=== PATIENT | male | born 1995 ===

== ENCOUNTER 2017-01-07 18:12 | Emergency (ER) | payer OTHER ==
[2017-01-07 18:25] VITALS: O2SAT 97
[2017-01-07] MEDS ORDERED: Promethazine/Cod 6.25mg-10mg/5ml Syr UD PO STA (18:37)
[2017-01-07] MEDS ORDERED: Promethazine/Cod 6.25mg-10mg/5ml Syr UD ONE (19:14)
--- NOTE | 2017-01-07 20:16 | ED PDOC ---
HPI: Chest Pain Time Seen by Provider: 01/07/17 18:25 Chief Complaint (Nursing): Chest Pain Chief Complaint (Provider): Chest Pain History Per: Patient History/Exam Limitations: no limitations Onset/Duration Of Symptoms: Mins (20 minutes ago) Current Symptoms Are (Timing): Still Present Severity: Moderate Quality: Other (Ripping) Associated Symptoms: Nausea. denies: Dyspnea Exacerbating Factors: Other (Coughing) Additional Complaint(s): Star Marin is a 21 year old male, with no pertinent past medical history, who presents to the emergency department with complaints of chest pain that the patient has been experiencing for 20 minutes [employer]. Patient states the pain is described as a ripping pain that worsens with coughing. Associated phlegm (green ) with occasional blood, a sore throat, and rhinorrhea are also reported. Denies dyspnea, extremity pain, weightless and a shortness of breath. Of note, the patient reports having had "pink eye" 2 days ago which he has been treating with over the counter eye drops. He also reports vomiting daily in the morning and has been doing so for a very long time; he has had no prior medical evaluations for this issue. PMD: none specified Past Medical History Reviewed: Historical Data, Nursing Documentation, Vital Signs Vital Signs: Last Vital Signs Temp 97.9 F 01/07/17 20:00 Pulse 85 01/07/17 20:53 Resp 16 01/07/17 20:00 BP 135/80 01/07/17 20:00 Pulse Ox 97 01/07/17 20:53 - Medical History PMH: Hypercholesterolemia - Surgical History Surgical History: No Surg Hx - Family History Family History: States: Unknown Family Hx - Social History Current smoker - smoking cessation education provided: No Alcohol: Occasional (Once a year) Drugs: Denies - Home Medications Home Medications: Ambulatory Orders Medication Instructions Recorded Azithromycin [Zithromax] 250 mg PO DAILY #6 dose 01/07/17 Ibuprofen [Motrin Tab] 600 mg PO Q8 PRN #60 tab 01/07/17 Promethazine HCl/Codeine 10 ml PO Q6 PRN #120 ml 01/07/17 [Prometh-Codein 6.25-10 mg/5 ml] - Allergies Allergies/Adverse Reactions: Allergies Allergy/AdvReac Type Severity Reaction Status Date / Time No Known Allergies Allergy Verified 01/07/17 18:13 Review of Systems ROS Statement: Except As Marked, All Systems Reviewed And Found Negative Constitutional: Negative for: Fever, Weight loss Eyes: Positive for: Conjunctivae Inflammation ("Ely eye") ENT: Positive for: Nose Discharge, Throat Pain Respiratory: Positive for: Cough, Sputum (Green-tinted w/ occasional blood). Negative for: Shortness of Breath Gastrointestinal: Positive for: Vomiting Musculoskeletal: Negative for: Arm Pain, Leg Pain Physical Exam - Reviewed Nursing Documentation Reviewed: Yes Vital Signs Reviewed: Yes - Physical Exam Appears: Positive for: Well, No Acute Distress Head Exam: Positive for: ATRAUMATIC, NORMAL INSPECTION, NORMOCEPHALIC Skin: Positive for: Warm, Dry Eye Exam: Positive for: EOMI, PERRL ENT: Positive for: Normal ENT Inspection. Negative for: Pharyngeal Erythema, Tonsillar Exudate Neck: Positive for: Painless ROM, Supple Cardiovascular/Chest: Positive for: Regular Rate, Rhythm. Negative for: Chest Non Tender (Mild left anterior wall tenderness), Gallop, Murmur, Other (No Rub) Respiratory: Positive for: Normal Breath Sounds. Negative for: Rales, Rhonchi, Wheezing, Respiratory Distress Gastrointestinal/Abdominal: Positive for: Soft. Negative for: Tenderness Back: Positive for: Normal Inspection. Negative for: Decreased ROM Extremity: Positive for: Normal ROM. Negative for: Deformity Lymphatic: Negative for: Adenopathy Neurologic/Psych: Positive for: Alert. Negative for: Motor/Sensory Deficits - ECG ECG: Positive for: Interpreted By Me, Viewed By Me ECG Rhythm: Positive for: Normal ST Segment, Sinus Rhythm, Right Bundle Branch Block Rate: 85 O2 Sat by Pulse Oximetry: 97 Pulse Ox Interpretation: Normal Medical Decision Making Medical Decision Makin:25 Initial Impression: cough, left-sided chest pain Differential Diagnoses include, but are not limited to PNA, PTX, Influenza A/B, Chest Wall Stream. Initial Plan: * CXR * Influenza A/B * Phenergan/Codeine Oral Syrup 5ml PO * Toradol 15mg IM * Reevaluation EKG shows NSR at 85bpm with a RBBB and Normal ST segments. 20:22 - CXR shows no acute disease. Negative for Influenza. 20:22 Upon provider reevaluation patient is feeling better, is medically stable, and requires no further treatment in the ED at this time. Patient will be discharged home with Rx for Ibuprofen 600mg, Prometh-Codein 10ml, Zithromax 250mg. Counseling was provided and all questions were answered regarding diagnosis and need for follow up with the referred clinic. There is agreement to discharge plan. Return if symptoms persist or worsen. Clinical Impression: Chest pain Scribe Attestation: Documented by Keegan Frey, training under Kemi Carvalho, acting as a scribe for Ruth Shi MD. Provider Scribe Attestation: All medical record entries made by the Scribe were at my direction and personally dictated by me. I have reviewed the chart and agree that the record accurately reflects my personal performance of the history, physical exam, medical decision making, and the department course for this patient. I have also personally directed, reviewed, and agree with the discharge instructions and disposition. Disposition - Clinical Impression Clinical Impression: Chest pain - Patient ED Disposition Is Patient to be Admitted: No Counseled Patient/Family Regarding: Studies Performed, Diagnosis, Need For Followup, Rx Given - Disposition Referrals: [facility] [Outside] [facility] [Outside] - 01/09/17 Disposition: Routine/Home Disposition Time: 20:22 Condition: STABLE Prescriptions: Ibuprofen [Motrin Tab] 600 mg PO Q8 PRN #60 tab PRN Reason: Pain, Moderate (4-7) Promethazine HCl/Codeine [Prometh-Codein 6.25-10 mg/5 ml] 10 ml PO Q6 PRN #120 ml PRN Reason: SEVERE COUGH ONLY Azithromycin [Zithromax] 250 mg PO DAILY #6 dose Instructions: Acute Bronchitis (ED), Chest Wall Pain (ED) Forms: [facility] ED School/Work Excuse Print Language: HUNGARIAN
[2017-01-07 20:41] VITALS: BP 135/80; RESP 16; TEMP 97.9
[2017-01-07 20:46] VITALS: PULSE 85
--- NOTE | 2017-01-08 08:43 | RAD ---
HISTORY: severe LEFT sided chest pain r/o ptx COMPARISON: No prior. TECHNIQUE: Chest PA and lateral FINDINGS: LUNGS: No active pulmonary disease. PLEURA: No significant pleural effusion identified. No pneumothorax apparent. CARDIOVASCULAR: Normal. OSSEOUS STRUCTURES: No significant abnormalities. VISUALIZED UPPER ABDOMEN: Normal. OTHER FINDINGS: None. IMPRESSION: No active disease.
== END 2017-01-07 20:41 | disposition home or self-care (01) ==
LOC: H.ER 18:12
DX: R07.9 Chest pain, unspecified (principal); E78.00 Pure hypercholesterolemia, unspecified

== ENCOUNTER 2017-02-07 16:42 | Emergency (ER) | payer OTHER ==
[2017-02-07 16:49] VITALS: BP 133/74; PULSE 67; RESP 18; TEMP 98.4; O2SAT 97
[2017-02-07] MEDS ORDERED: Povidone Iodine Topical 10% Sol ONE (16:50)
[2017-02-07] MEDS ORDERED: Lidocaine 1% Inj (20ml) IJ STA (17:13)
--- NOTE | 2017-02-07 17:13 | ED PDOC ---
Upper Extremity Pain/Injury Chief Complaint (Nursing): Upper Extremity Problem/Injury Chief Complaint (Provider): Laceration History Per: Patient History/Exam Limitations: no limitations Onset/Duration Of Symptoms: Hrs (prior to arrival) Current Symptoms Are (Timing): Still Present Additional Complaint(s): 16:50 Star Marin, 21 year old male presents to the ED on 02/07/17 after experiencing a laceration to his first two digits on his right hand while using a bread knife at work prior to arrival. The patient denies numbness at site of injury and has no pertinent past medical history. Past Medical History Reviewed: Historical Data, Nursing Documentation, Vital Signs Vital Signs: Last Vital Signs Temp 98.4 F 02/07/17 16:47 Pulse 67 02/07/17 16:47 Resp 18 02/07/17 16:47 BP 133/74 02/07/17 16:47 Pulse Ox 97 02/07/17 16:47 - Medical History PMH: Hypercholesterolemia - Family History Family History: States: Unknown Family Hx - Home Medications Home Medications: Ambulatory Orders Medication Instructions Recorded Azithromycin [Zithromax] 250 mg PO DAILY #6 dose 01/07/17 Ibuprofen [Motrin Tab] 600 mg PO Q8 PRN #60 tab 01/07/17 Promethazine HCl/Codeine 10 ml PO Q6 PRN #120 ml 01/07/17 [Prometh-Codein 6.25-10 mg/5 ml] Cephalexin [cephalexin] 500 mg PO BID #20 cap 02/07/17 - Allergies Allergies/Adverse Reactions: Allergies Allergy/AdvReac Type Severity Reaction Status Date / Time No Known Allergies Allergy Verified 01/07/17 18:13 Review of Systems Neurological: Negative for: Numbness (No numbness in right hand) Physical Exam - Reviewed Nursing Documentation Reviewed: Yes Vital Signs Reviewed: Yes - Physical Exam Appears: Positive for: Non-toxic, No Acute Distress Head Exam: Positive for: ATRAUMATIC, NORMOCEPHALIC Extremity: Positive for: Normal ROM (Full ROM to 1st NTP and 2nd digit DIP), Capillary Refill (good cap refill to 1st NTP and 2nd digit DIP), Deformity ( Laceration noted to 1st NTP (2cm) and 2nd digit DIP on right hand; partial thickness; good pulses; active bleeding), Other (No nail bed in 2nd digit DIP) Neurologic/Psych: Positive for: Alert, Oriented (x3) - ECG O2 Sat by Pulse Oximetry: 97 (RA) Pulse Ox Interpretation: Normal Medical Decision Making Medical Decision Makin:50 Initial Impression: Laceration noted to 1st NTP and 2nd digit DIP Initial Plan: * Wash wound with Normal Saline and Betadine * Suture placement * Finger splint application * No indication of X-Ray * Lidocaine 1% (20ml) 10 ml IJ STAT Discussed with patient plan of treatment, finger splint application. Patient was told not to wet wound, the risk of infection, and to wait 7-8 days for suture removal. Patient agreed to plan of treatment. Scribe~Attestation: Documented by Yanet Romero, acting as a~scribe~for Irasema Oseguera PA-C. Provider~Scribe~Attestation: All medical record entries made by the~Scribe~were at my direction and personally dictated by me. I have reviewed the chart and agree that the record accurately reflects my personal performance of the history, physical exam, medical decision making, and the department course for this patient. I have also personally directed, reviewed, and agree with the discharge instructions and disposition. Procedures - Laceration/Wound Repair Suture Placement Wound Length (cm): 2 (1st digit NTP) Wound's Depth, Shape: superficial (partial thickness) Wound Explored: clean Irrigated w/ Saline (ccs): 250 Betadine Prep?: Yes Anesthesia: 1% Lidocaine Volume Anesthetic (ccs): 4 Wound Debrided: minimal Wound Repaired With: Sutures Suture Size/Type: 5:0, nylon Number of Sutures: 8 Wound Complexity: Intermediate (Interrupted) Sterile Dressing Applied?: Yes Splint Applied?: Yes Suture Wound Length (cm): 2 (2nd digit DIP) Wound's Depth, Shape: superficial (partial thickness) Wound Explored: clean Betadine Prep?: Yes Volume Anesthetic (ccs): 4 Wound Debrided: minimal Wound Repaired With: Sutures Suture Size/Type: 5:0, nylon Number of Sutures: 7 Wound Complexity: Intermediate (interrupted) Sterile Dressing Applied?: Yes Splint Applied?: Yes Disposition - Clinical Impression Clinical Impression: Laceration - Patient ED Disposition Is Patient to be Admitted: No - Disposition Referrals: Steven Medrano MD [Medical Doctor] - Disposition: Routine/Home Disposition Time: 20:38 Condition: STABLE Additional Instructions: keep wound clean do not wet wound keep splint on return in 8-9 days for wound check and removal. Prescriptions: Cephalexin [cephalexin] 500 mg PO BID #20 cap Instructions: Care For Your Stitches (ED), Laceration (ED) Forms: [employer] ED School/Work Excuse
== END 2017-02-07 19:09 | disposition home or self-care (01) ==
LOC: H.ER 16:42
DX: S61.218A Laceration without foreign body of other finger without damage to nail, initial encounter (principal); W26.0XXA Contact with knife, initial encounter; Y92.000 Kitchen of unspecified non-institutional (private) residence as the place of occurrence of the external cause; E78.00 Pure hypercholesterolemia, unspecified

== ENCOUNTER 2017-02-14 11:17 | Emergency (ER) | payer OTHER ==
[2017-02-14 11:31] VITALS: BP 122/67; PULSE 80; RESP 20; TEMP 97; O2SAT 100
--- NOTE | 2017-02-14 11:44 | ED PDOC ---
HPI: Wound Care - HPI Time Seen by Provider: 02/14/17 11:41 Chief Complaint (Nursing): Suture/Staple Removal Chief Complaint (Provider): suture removal History Per: Patient Additional Complaint(s): Patient presents to emergency department for removal of sutures from left hand. Patient sustained 2 lacerations to left hand last week that were repaired 7 days ago. He denies any acute pain to the affected area, denies active bleeding or drainage. Patient's tetanus is up-to-date. Past Medical History Reviewed: Historical Data, Nursing Documentation, Vital Signs Vital Signs: Last Vital Signs Temp 97 F L 02/14/17 11:29 Pulse 80 02/14/17 11:29 Resp 20 02/14/17 11:29 BP 122/67 02/14/17 11:29 Pulse Ox 100 02/14/17 11:29 - Medical History PMH: No Chronic Diseases - Surgical History Surgical History: No Surg Hx - Family History Family History: States: No Known Family Hx - Living Arrangements Living Arrangements: With Family - Social History Current smoker - smoking cessation education provided: No Alcohol: None Drugs: Denies - Immunization History Hx Tetanus Toxoid Vaccination: Yes - Home Medications Home Medications: Ambulatory Orders Medication Instructions Recorded Azithromycin [Zithromax] 250 mg PO DAILY #6 dose 01/07/17 Ibuprofen [Motrin Tab] 600 mg PO Q8 PRN #60 tab 01/07/17 Promethazine HCl/Codeine 10 ml PO Q6 PRN #120 ml 01/07/17 [Prometh-Codein 6.25-10 mg/5 ml] Cephalexin [cephalexin] 500 mg PO BID #20 cap 02/07/17 - Allergies Allergies/Adverse Reactions: Allergies Allergy/AdvReac Type Severity Reaction Status Date / Time No Known Allergies Allergy Verified 02/14/17 11:29 Review of Systems ROS Statement: Except As Marked, All Systems Reviewed And Found Negative Constitutional: Negative for: Fever Musculoskeletal: Positive for: Other (suture removal, lacerations to left hand) Physical Exam - Reviewed Nursing Documentation Reviewed: Yes Vital Signs Reviewed: Yes - Physical Exam Appears: Positive for: Well, Non-toxic, No Acute Distress Eye Exam: Positive for: Normal appearance Extremity: Positive for: Other (Sutured, well-healed laceration noted to finger pad of left index finger, additional sutured laceration noted to left thenar prominence, wounds are clean, dry and intact with no acute infection, full range of motion of all digits of left hand noted with normal distal sensation) Neurologic/Psych: Positive for: Alert, Oriented - ECG O2 Sat by Pulse Oximetry: 100 Pulse Ox Interpretation: Normal Medical Decision Making Medical Decision Makin21 year old male presents for suture removal Both wounds are well-healed with no infections. Sutures removed from both lacerations without any difficulty. Closure was reinforced with Steri-Strips. Patient was advised to allow Steri-Strips to fall off on their own. He was instructed to follow up with clinic or primary doctor in 2-3 days. Disposition - Clinical Impression Clinical Impression: Removal of suture - Patient ED Disposition Is Patient to be Admitted: No Counseled Patient/Family Regarding: Diagnosis, Need For Followup - Disposition Referrals: [facility] [Outside] Disposition: Routine/Home Disposition Time: 11:59 Condition: STABLE Additional Instructions: Allow steri-strips to fall off on their own. Keep wounds clean and dry. Follow up in 2-3 days with clinic or primary care doctor. Instructions: Stitches Removal (ED) Print Language: IRANIAN
== END 2017-02-14 12:37 | disposition home or self-care (01) ==
LOC: H.ER 11:17
DX: Z48.02 Encounter for removal of sutures (principal)

== ENCOUNTER 2018-04-07 16:22 | Emergency (ER) | payer OTHER ==
[2018-04-07 16:27] VITALS: BP 132/76; PULSE 68; RESP 16; TEMP 98.4; O2SAT 98
[2018-04-07] MEDS ORDERED: Tdap Vaccine 0.5 ml Vial (10-64 yrs) IM ONE ×2 (16:36→16:47)
--- NOTE | 2018-04-07 16:48 | ED PDOC ---
HPI: Wound Care - HPI Time Seen by Provider: 04/07/18 16:28 Chief Complaint (Nursing): Abnormal Skin Integrity Chief Complaint (Provider): Finger Laceration History Per: Patient Exam Limitations: no limitations Onset/Duration Of Symptoms: Hrs Additional Complaint(s): 22-year-old male presents to ED with a laceration to his R 3rd digit. Patient reports he was moving a garbage bag at work when a shard of glass from a broken bottle cut his R 3rd digit. Denies taking any medications prior to arrival. Patient is R hand dominant. (-) foreign body sensation. Bleeding was controlled prior to arrival. Cannot recall last tetanus vaccine. No other complaints at present. PMD: Cannot recall PMD Past Medical History Reviewed: Historical Data, Nursing Documentation, Vital Signs Vital Signs: Last Vital Signs Temp 98.4 F 04/07/18 16:24 Pulse 68 04/07/18 16:24 Resp 16 04/07/18 16:24 BP 132/76 04/07/18 16:24 Pulse Ox 98 04/07/18 16:24 - Surgical History Surgical History: No Surg Hx - Family History Family History: States: Unknown Family Hx - Social History Current smoker - smoking cessation education provided: No Alcohol: None Drugs: Denies - Immunization History Hx Tetanus Toxoid Vaccination: No - Home Medications Home Medications: Ambulatory Orders Medication Instructions Recorded Azithromycin [Zithromax] 250 mg PO DAILY #6 dose 01/07/17 Ibuprofen [Motrin Tab] 600 mg PO Q8 PRN #60 tab 01/07/17 Promethazine HCl/Codeine 10 ml PO Q6 PRN #120 ml 01/07/17 [Prometh-Codein 6.25-10 mg/5 ml] Cephalexin [cephalexin] 500 mg PO BID #20 cap 02/07/17 - Allergies Allergies/Adverse Reactions: Allergies Allergy/AdvReac Type Severity Reaction Status Date / Time No Known Allergies Allergy Verified 04/07/18 16:24 Review of Systems ROS Statement: Except As Marked, All Systems Reviewed And Found Negative Musculoskeletal: Positive for: Other (right 3rd digit laceration) Physical Exam - Reviewed Nursing Documentation Reviewed: Yes Vital Signs Reviewed: Yes - Physical Exam Appears: Positive for: Well, Non-toxic, No Acute Distress (Resting comfortably, on cell phone.) Head Exam: Positive for: NORMOCEPHALIC Skin: Positive for: Normal Color, Warm, Dry Eye Exam: Positive for: EOMI, PERRL ENT: Positive for: Other (Mucus membranes moist. Airway patent, (-) stridor.) Neck: Positive for: Painless ROM, Supple Cardiovascular/Chest: Positive for: Regular Rate, Rhythm Respiratory: Positive for: Normal Breath Sounds Neurologic/Psych: Positive for: Alert, Oriented (x3), Gait (steady in ED) Comments: R 3rd digit (+) 0.5 cm horizontal, superficial laceration to palmar aspect of the PIP. FROM of digit. (-) active bleeding, (-) tenderness, (-) swelling, (-) foreign body visualization (+) neurovascular intact, (+) Capillary refill and sensation intact Remainder of right upper extremity, including hand, wrist, elbow and shoulder nontender with FROM. - ECG O2 Sat by Pulse Oximetry: 98 (RA) Pulse Ox Interpretation: Normal Procedure: Wound Repair - Time Performed Time Performed: 16:50 - Time Out Time Out: Side verified, Site verified, Patient ID confirmed, Sterile procedures obs. - Consent Obtained Consent obtained: Verbal - Performed by Performed by: Mid-level Provider (Tavon WRIGHT) - Indications Indication(s):: Laceration - Location Location:: Right Finger:: Middle Shape:: Linear (horzitonal) Dimensions Length cm: 0.5 Depth:: Epidermis - Debris Debris:: None - Irrigated Irrigated with ml of normal saline: 100 - Complexity Complexity:: Simple (one layer) - Wound repair method Brendan:: Tissue glue (Dermabond used) - Patient tolerated procedure Patient Tolerated Procedure:: Well (Patient tolerated procedure well.) Medical Decision Making Medical Decision Making: Time:1635 Impression(s): Finger laceration Plan: - Adacel (10-64 yrs) 0.5 ml IM - Laceration Repair - Re-evaluation Patient advised that sutures would be the best closure method, however patient requesting skin adhesive at this time. Dermabond ordered. Laceration repair performed by Tavon WRIGHT. See procedure note. Patient tolerated procedure well. Educated on adhesive wound care. 1739 On re-evaluation, patient reports improvement of symptoms. On exam, patient remains AAOx3, in no acute distress. On exam, neck is supple, lungs CTA, cardiac RRR, neuro exam shows no focal findings. VSS, stable for discharge. Diagnostic results d/w the patient in great detail. Dx of finger laceration d/w the patient. Based on history, exam and diagnostic results plan will be for discharge and outpatient follow up. Advised to follow up with primary care physician/clinic in 1-2 days without fail. Return to the emergency room at any time for any new or worsening symptoms. Patient states he fully agrees with and understands discharge instructions. States that he agrees with the plan and disposition. Verbalized and repeated discharge instructions and plan. I have given the patient opportunity to ask any additional questions. Scribe Attestation: Documented by Fabrizio Ontiveros, acting as a scribe for Renetta Montes De Oca PA-C. Provider Scribe Attestation: All medical record entries made by the Scribe were at my direction and personally dictated by me. I have reviewed the chart and agree that the record accurately reflects my personal performance of the history, physical exam, medical decision making, and the department course for this patient. I have also personally directed, reviewed, and agree with the discharge instructions and disposition. Disposition - Clinical Impression Clinical Impression: Finger laceration - Patient ED Disposition Is Patient to be Admitted: No Counseled Patient/Family Regarding: Diagnosis, Need For Followup - Disposition Referrals: [facility] [Outside] Disposition: Routine/Home Disposition Time: 17:42 Condition: STABLE Additional Instructions: FOLLOW UP WITH CLINIC IN 1-2 DAYS FOR WOUND CHECK. RETURN TO ED WITH ANY NEW OR WORSENING SYMPTOMS. KEEP WOUND CLEAN AND DRY. Instructions: Laceration Repair With Glue (DC), Wound Care Forms: [employer] (Japanese) Print Language: KAZAKH - POA Present On Arrival: Falls Or Trauma (cut with glass)
== END 2018-04-07 18:00 | disposition home or self-care (01) ==
LOC: H.ER 16:22
DX: S61.211A Laceration without foreign body of left index finger without damage to nail, initial encounter (principal); W25.XXXA Contact with sharp glass, initial encounter; Y99.0 Civilian activity done for income or pay